=== PATIENT | female | born 1970 | race Caucasian/White ===

== ENCOUNTER → 2024-03-13 08:04 | Outpatient (REF) | payer BC, SELFPAY | LOC: WDC 08:04 | PROVIDERS: ATTENDING PHYSICIAN Physician Assistant Medical | DX: Z12.31 Encounter for screening mammogram for malignant neoplasm of breast (principal) | CPT/HCPCS: 77063; 77067 ==

== ENCOUNTER → 2024-05-22 08:18 | Outpatient (REF) | payer BC, SELFPAY | LOC: RCS 08:18 | PROVIDERS: ATTENDING PHYSICIAN Internal Medicine; FAMILY PHYSICIAN Physician Assistant Medical | DX: I10 Essential (primary) hypertension (principal) | CPT/HCPCS: 93307; Q9957 ==

== ENCOUNTER → 2025-03-25 13:42 | Outpatient (REF) | payer BC, SELFPAY | LOC: WDC 13:42 | PROVIDERS: ATTENDING PHYSICIAN Physician Assistant Medical | DX: Z12.31 Encounter for screening mammogram for malignant neoplasm of breast (principal) | CPT/HCPCS: 77063; 77067 ==